=== PATIENT | female | born 1965 | race Hispanic/Latino ===

== ENCOUNTER 2019-10-05 06:22 | Day surgery (SDC) | payer OTHER ==
[2019-09-29 12:06] LABS: Urine Appearance CLEAR; Urine Bilirubin NEGATIVE (NEG); Urine Blood NEGATIVE (NEG); Urine Color YELLOW; Urine Glucose NEGATIVE (NEG); Urine Protein NEGATIVE (NEG); Urine Urobilinogen 0.2 mg/dL (0.2-1.0)
[2019-09-29 12:16] LABS: Absolute Lymphocytes (CBC) 1.9 K/uL (0.7-4.9); Basophils % 0.7 % (0-1.3); Hematocrit 39.8 % (36.0-45.0); Lymphocytes % 42.9 % (15.3-44.8); MPV 7.5 fL (7.6-11.3)
[2019-09-29 12:18] LABS: Protime INR 1.06
[2019-09-29 12:18] LABS: Urine Microscopic Reflex NO UMIC
[2019-09-29 12:27] LABS: Potassium 4.6 mmol/L (3.5-5.1)
[2019-10-05] MEDS ORDERED: CEFAZOLIN/SWI 2gm 2 GM/20 ML SYR ONE (06:44)
[2019-10-05] MEDS ORDERED: Ringers Lactate 1,000 ML IV ONE ×2 (06:44→08:39)
[2019-10-05] MEDS ORDERED: NA CHLORIDE 0.9% 1,000 ML ONE (07:02)
[2019-10-05] MEDS ORDERED: NA CHLORIDE 0.9% 100 ML IV ONE (07:02)
[2019-10-05] MEDS ORDERED: CEFAZOLIN/SWI 1gm 1 GM/10 ML SYR ONE (07:03)
[2019-10-05] MEDS ORDERED: propofoL 200 MG/20 ML VIAL IV ONE (07:08)
[2019-10-05] MEDS ORDERED: ROCURONIUM 50 MG/5 ML VIAL IV ONE (07:09)
[2019-10-05] MEDS ORDERED: MIDAZOLAM HCL 2 MG/2 ML INJ ONE (07:09)
[2019-10-05] MEDS ORDERED: FENTANYL CITR 250 MCG/5 ML ONE (07:09)
[2019-10-05] MEDS ORDERED: ONDANSETRON 4 MG/2 ML VIAL ONE (07:09)
[2019-10-05] MEDS ORDERED: dexAMETHasone 10 MG/ML VIAL ONE (07:09)
[2019-10-05] MEDS ORDERED: LIDOCAINE 2% MPF 5 ML VIAL ONE (07:09)
[2019-10-05] MEDS: VASOPRESSIN 20 UNIT/ML VIAL ONE ×2 (08:31→08:43)
[2019-10-05] MEDS ORDERED: EPHEDRINE SULF 50 MG/ML VIAL ONE (09:00)
[2019-10-05] MEDS ORDERED: NS 0.9% VIAL 10 ML ONE (09:00)
[2019-10-05] MEDS ORDERED: PROMETHAZINE INJ 25 MG/ML AMP IV PRN (10:17)
[2019-10-05] MEDS ORDERED: MORPHINE 4 MG/ML SYR IV PRN (10:17)
--- NOTE | 2019-10-05 10:24 | P.BOP ---
Preoperative diagnosis: stage 2 rectocele, KELLIE Postoperative diagnosis: same and posterior enterocele, perineal body defect Primary procedure: rectocele repair, post enterocele repair MUS Secondary procedure: perineorrhaphy, cystoscopy Pediatric Neuropsychologist: Tori Willis Estimated blood loss: 100 Specimen: none Findings: -1/-1/-6/4-5/mod/7/-1/0/n/a; distal RVS defect detached from PB Anesthesia: General Complications: None Drain(s): Urinary catheter Implants: [id number] Transferred to: Recovery Room Condition: Good
[2019-10-05] MEDS ORDERED: Ringers Lactate 1,000 ML IV SCH (11:00)
[2019-10-05 11:47] VITALS: O2SAT 97
[2019-10-05 12:53] VITALS: BMI 26.2
[2019-10-05] MEDS: ACETAMINOPHEN 500 MG TAB PO PRN (18:25)
--- NOTE | 2019-10-05 21:38 | OP ---
Date of Procedure: 10/05/2019 Surgeon: Breonna Varghese MD Airplane Patroller: Tori Lincoln. Preoperative Diagnoses: Stage II rectocele, stress urinary incontinence. Postoperative Diagnoses: Stage II rectocele, stress urinary incontinence and posterior enterocele an d perineal body defect. Procedures Performed: Rectocele repair, posterior enterocele repair, perineorrhaphy, mid urethral sl ing, cystoscopy, and (TVT-O). Anesthesia: General endotracheal. Estimated Blood Loss: 100. Specimens: None. Complications: None. Drains: Flores catheter and vaginal packing. Findings: POP-Q -1, -1, -6, 4 to 5 for genital hiatus. Moderate 7, -1, 0 nonapplicable. Distal rec tovaginal septum defect was noted. It was detached from the right side and from the perineal body an d there was amount of the connective tissue at the distal 1/3 of the posterior wall. This had to be trimmed and repaired after the perineal body reconstruction was done, it was reattached to the distal rectovaginal septum after this was corrected in a site-specific manner. Condition: Good. Description Of Procedure: Patient is a 54-year-old lady, presented with stress urinary incontinence, also vaginal bulge with prolapse symptoms evaluated POP-Q as above. Discussed about all the conserv ative options. She had tests done in the office with urodynamics. Maximum urethral closure pressure was 53 cm of water and demonstrable bedside leak with hypermobility noted. The anterior wall had a small amount of prolapse. We discuss this with her that this does not seem to need to repair. She i s asymptomatic. She voids well with normal PVR. So, posterior wall however symptomatic on questioni ng the patient and does feel a bulge symptoms at times, so offered physical therapy, observation, [facility], surgery. Patient wanted to proceed with surgical repair at the time that she had incontinence s ling as well. After re-consenting patient in the preop area, her sister and her son were present with bleeding, inf ection, injury to the bowel, bladder and ureters. Catheterization revision of the sling is too tight and very rare. Instances of dyspareunia orifice were all reviewed and discussed with the patient an d consented. Taken back to OR, 2 g of Ancef were given. Placed in a dorsal lithotomy position after general anest hesia was given in a supine fashion. POP-Q was noted as above. Lower abdomen, vulva, vagina, and perineum prepped and draped in a sterile fashion. Flores placed to drain the bladder. Mid urethral area was picked up with the help of 2 All is clamps, injected with dilute vasopressin 10 mL in the midline and on both sides. Incision made in the mid urethral area with a scalpel. Dissection performed on to the ipsilateral obturator space af ter the obturator membrane was perforated just by following the tract going underneath into the pubic ramus, pointing to the ipsilateral shoulder in the usual fashion. Then, the tract was opened up. S imilar dissection was performed on the opposite side, creating the space for the spike to be passed a nd wing guide was placed. Wilner was passed in the usual fashion, exited 2 cm lateral and superior to the horizontal line drawn at the level of the external meatus on both sides. The wing guide was jairo maria isabel on the left side and similarly smoothly passed through. There was no vaginal perforation as well . This was checked. Then, the plastic dilators were cut. Sheaths were held with Daphne's. Tensioni ng was done with Metzenbaum scissors underneath the urethra. Then, the plastic sheaths were pulled o ut, mesh left in place. Mesh cut very flush with the skin and Dermabond placed on the skin. The closure of the vaginal epithelium was with a continuous running 3-0 suture in a locked fashion. Then, Flores was removed. Cystoscopy was performed with a 30 degree lens. Normal bladder epithelium. No evidence of perforation. Large blood vessel seen underneath the normal-appearing urothelium. was used and urethra was well visualized. No evidence of any injury. Scope was pulled ou t. Flores was replaced after draining the bladder and clamped and retracted superiorly. Then posteri or repair was performed. The remnant ends of the hymen were picked up. There was a defect as dictat ed in the findings in the midline. This appeared to be part of that connective tissue appeared like a mound of tissue from the lateral wall and the perineal body and there was a defect in thi s location. A carl-shaped incision was made after injecting with dilute vasopressin in the posterior midline a nd on the perineum as well with 20 mL of dilute vasopressin. Then, carl-shaped incision was made with a scalpel starting at the top of the defect and then coming down all the way to the hymen. The epithelium was dissected away from the rectovaginal septum and the remnant and the defect. Then, onc e the entire posterior wall was well visualized, then Allis clamps were placed on the edges and all t he lateral rectovaginal septum was dissected and . Then, I was able to dissect superiorly a nd posterior enterocele was dissected away. There was a bleeder on the right side that had to be sut ured with two 2-0 Vicryl sutures and then later at 3-0 Vicryl suture also in locations immediately spear perior to it along the supply of that vessel again. Once hemostasis was secured, the dissection was taken all the way to the vaginal apex and posterior enterocele was seen. This was repaired with a pu rsestring 2-0 Monocryl suture. Once this was tied, and the posterior defect was more obvious, the re ctovaginal septum detached from the right lateral wall. This was repaired with a 2-0 PDS in a contin uous running fashion. Then, the perineal body reconstruction was done keeping the suture aside witho ut cutting it. 2-0 Vicryl was used to bring the perineal body together after dissecting the perineal skin and the perineal body away from the scar and overlying vaginal epithelium or vestibular epithel ium. Finger placed in the vagina just to gauge the thickness and 2-0 Vicryl sutures were taken and t ied together. Once this reconstruction was good and optimal, then the PDS was run through the perine al body for support and reattachment and then it was taken onto the left side and finished the suture tied here, then the vaginal epithelium was trimmed appropriately without making the canal to narrow. Then, closure was done in a transverse fashion bringing the top edge of the vaginal epithelium down below and trimming laterally, so a 2-0 Vicryl suture was started on the right lateral aspect and luis sed all the way on the left lateral aspect. Then, the of the midline was closed with the help of a 3-0 Vicryl in a continuous running fashion and once I came down to the perineum. This was taken subcutaneously and subcuticular closure was done on the perineal skin and the knot tied inside the hymen. There were no dog-ears, no defects. Rectal exam was performed. No evidence of any injury or foreign body in the form of suture was noted. Gloves were changed. Vaginal packing was placed. Flores was drained and attached to a drainage bag. Instrument, needle, and sponge counts were done and were cor rect at the end of the case. The patient tolerated the procedure well. There was no reason for the colpopexy and the vaginal diameter. The genital weight was optimal and genital height was 1 cm or le ss, 3 to 4 cm. She tolerated the procedure well. She was recovered from anesthesia in the OR and ta loraine to PACU in stable condition. Instrument, needle, and sponge counts x2 were correct at the end of the case. She will be recovered and taken to the floor for recovery, overnight observation, voiding trials in the morning then discharge home. KATIE Voice ID: [id number] Report ID: [id number]
[2019-10-06] MEDS: ACETAMINOPHEN 500 MG TAB PO PRN ×2 (02:25→08:43)
[2019-10-06 06:12] LABS: Absolute Lymphocytes (CBC) 1.7 K/uL (0.7-4.9); Hematocrit 33.2 % (36.0-45.0); Lymphocytes % 13.6 % (15.3-44.8); MPV 7.7 fL (7.6-11.3)
[2019-10-06 08:19] VITALS: BP 146/75; TEMP 98
[2019-10-06] MEDS ORDERED: THYROID PORK PO SCH (09:00)
[2019-10-06] MEDS ORDERED: MAGNESIUM OXIDE 400 MG TAB PO SCH (09:00)
[2019-10-06] MEDS ORDERED: LORATADINE 10 MG TAB PO SCH (09:00)
== END 2019-10-06 08:55 | disposition home or self-care (01) ==
LOC: OR 06:22 → 2ND-WC 10:58 → OR 10-06 08:55
PROVIDERS: ATTEND Obstetrics & Gynecology
PROC: 0JQC0ZZ Repair Pelvic Region Subcutaneous Tissue and Fascia, Open Approach (ICD-10-PCS; 2019-10-05)
PROC: 0HQ9XZZ Repair Perineum Skin, External Approach (ICD-10-PCS; 2019-10-05)
PROC: 0TSD0ZZ Reposition Urethra, Open Approach (ICD-10-PCS; 2019-10-05)
PROC: 0UQF0ZZ Repair Cul-de-sac, Open Approach (ICD-10-PCS; principal; 2019-10-05 07:30)
DX: N81.4 Uterovaginal prolapse, unspecified (principal); N95.1 Menopausal and female climacteric states; R19.09 Other intra-abdominal and pelvic swelling, mass and lump; N81.6 Rectocele; R39.14 Feeling of incomplete bladder emptying; N39.3 Stress incontinence (female) (male); I10 Essential (primary) hypertension
CPT/HCPCS: 85025 ×2; 80048; 36415 ×2; 86900; 86850; 85610; 86901; 85730; 81003; 57265; 57288; J2704; J2550; J2250; J3010; J1100; J0690 ×2; J7120 ×4; J7030; J2405